=== PATIENT | male | born 1965 | race Caucasian/White ===

== ENCOUNTER 2021-01-27 15:58 | Emergency (ER) | payer OTHER ==
[~2021-01-27 15:58] MED LIST: BREO ELLIPTA 21 EACH INH; CITALOPRAM HBR40 MG PO; FLONASE 0.05% N16 GM; MEDROL4 MG PO; MELOXICAM15 MG PO; MUCUS RELIEF400 MG PO; NEURONTIN400 MG PO; OMEGA 3 1,0001 EACH PO; OMEPRAZOLE20 MG PO; PREDNISONE 50 M50 MG PO; ROBITUSSIN AC480 ML PO; ROBITUSSIN DM UD5 ML PO; SIMVASTATIN20 MG PO; SPIRIVA RESPIMAT4 GM INH; VENTOLIN HFA 66.7 GM INH; VENTOLIN/PROVE0.5 ML INH; VITAMIN D350000 UNIT PO; ZITHROMAX250 MG PO; ZYRTEC10 M3 PO
== END 2021-01-27 17:00 | disposition home or self-care (01) ==
LOC: ER1 15:58
DX: S66.912A Strain of unspecified muscle, fascia and tendon at wrist and hand level, left hand, initial encounter (principal); S66.911A Strain of unspecified muscle, fascia and tendon at wrist and hand level, right hand, initial encounter; S60.212A Contusion of left wrist, initial encounter; J44.9 Chronic obstructive pulmonary disease, unspecified; Z88.2 Allergy status to sulfonamides; W06.XXXA Fall from bed, initial encounter; Y92.009 Unspecified place in unspecified non-institutional (private) residence as the place of occurrence of the external cause
CPT/HCPCS: 73110; 73130; 99283